=== PATIENT | female | born 1985 | race African-American/Black ===

== ENCOUNTER 2023-10-23 20:12 | Emergency (ER) | payer BC, OTHER ==
[2023-10-23 20:18] VITALS: BP 147/84; PULSE 62; RESP 18; TEMP 97.8; BMI 33.0
[2023-10-23] MEDS ORDERED: SODIUM CHLORIDE 1,000 ML IV STA (21:18)
[2023-10-23] MEDS ORDERED: METOCLOPRAMIDE HCL INJECTION 10 MG/2 ML VIAL IVPB ONE (21:19)
[2023-10-23] MEDS ORDERED: METOCLOPRAMIDE HCL INJECTION 10 MG/2 ML VIAL ONE (21:24)
[2023-10-24] MEDS ORDERED: KETOROLAC TROMETHAMINE 30 MG/1 ML VIAL IVPUSH ONE (00:17)
[2023-10-24] MEDS ORDERED: KETOROLAC TROMETHAMINE 30 MG/1 ML VIAL ONE (00:21)
== END 2023-10-24 01:07 | disposition home or self-care (01) ==
LOC: JER 20:12
PROC: 3E033NZ Introduction of Analgesics, Hypnotics, Sedatives into Peripheral Vein, Percutaneous Approach (ICD-10-PCS; principal; 2023-10-23)
PROC: 3E0337Z Introduction of Electrolytic and Water Balance Substance into Peripheral Vein, Percutaneous Approach (ICD-10-PCS; 2023-10-23)
PROC: 3E033GC Introduction of Other Therapeutic Substance into Peripheral Vein, Percutaneous Approach (ICD-10-PCS; 2023-10-24)
DX: R51.9 Headache, unspecified (principal); J02.0 Streptococcal pharyngitis
CPT/HCPCS: 70450-TC; 99284-25